=== PATIENT | female | born 1955 | race Caucasian/White ===

== ENCOUNTER 2017-08-18 14:55 | Emergency (ER) | payer MEDICAID ==
[2017-08-18] MEDS ORDERED: Iopamidol 755 MG/ML 150 ML Bottle IV ONE (16:48)
--- NOTE | 2017-08-18 17:31 | EDM.PDOC ---
ED HPI GENERAL MEDICAL PROBLEM - General Chief Complaint: General Stated Complaint: swollen neck Time Seen by Provider: 08/18/17 15:00 Source of Information: Reports: Patient History Limitations: Reports: No Limitations - History of Present Illness INITIAL COMMENTS - FREE TEXT/NARRATIVE: Princess is visiting the [place] area and taking care of 89 yr old mom who reports appearance of painless swelling involving the L neck over the past week. She discussed issues with Oncologist in [place], [place] who advised an ED visit for assessment. She was treated for Breast Ca about 18 mos ago in [place]. She has residual swelling and deformity of the L breast. - Related Data Allergies Allergy/AdvReac Type Severity Reaction Status Date / Time No Known Allergies Allergy Verified 08/18/17 15:25 Home Meds: Home Meds Cetirizine [ZyrTEC] 10 mg PO DAILY 08/18/17 [History] Tamoxifen [Nolvadex] 20 mg PO DAILY 08/18/17 [History] Past Medical History Endocrine/Metabolic History: Reports: Obesity/BMI 30+ Oncologic (Cancer) History: Reports: Breast - Past Surgical History Oncologic Surgical History: Reports: Lumpectomy, Other (See Below) Other Oncologic Surgeries/Procedures: lymphectomy Social & Family History - Family History Family Medical History: Noncontributory - Tobacco Use Smoking Status *Q: Never Smoker - Caffeine Use Caffeine Use: Reports: Coffee - Recreational Drug Use Recreational Drug Use: No ED ROS GENERAL - Review of Systems Review Of Systems: ROS reveals no pertinent complaints other than HPI. ED EXAM, GENERAL - Physical Exam Exam: See Below Exam Limited By: No Limitations General Appearance: Alert, WD/WN, No Apparent Distress Eye Exam: Bilateral Eye: EOMI, Normal Inspection, PERRL Ears: Normal External Exam, Normal TMs Nose: Normal Inspection Throat/Mouth: Normal Inspection, Normal Lips, Normal Teeth, Normal Gums, Normal Oropharynx, Normal Voice, No Airway Compromise Head: Atraumatic, Normocephalic Neck: Supple, Non-Tender, Full Range of Motion, Lymphadenopathy (L) (3 cm firm mass) Respiratory/Chest: Lungs Clear, Normal Breath Sounds, Chest Non-Tender, Other ( L breast: 10 cm firm mass with deformed from prior surgery; R breast: no dx abnormality) GI/Abdominal: Normal Bowel Sounds, No Organomegaly, No Distention (Female) Exam: Deferred Rectal (Female) Exam: Deferred Back Exam: Normal Inspection Extremities: Normal Inspection Neurological: Alert, Oriented, CN II-XII Intact, Normal Cognition, Normal Gait, No Motor/Sensory Deficits Psychiatric: Normal Affect, Normal Mood Skin Exam: Warm, Dry, Intact Lymphatic: Adenopathy (L neck mass) Course - Vital Signs Text/Narrative:: CT scan of the neck confirms a 3 cm mass, likely consistent with metastatic disease. There is also a 10 cm mass in the L breast suspicious for metastatic disease. Results were conveyed to Mrs. Phan, who will follow up with Oncology in [place] tomorrow. - Orders/Labs/Meds Orders: Active Orders 24 hr Category Date Time Status Chest w Cont [CT] Stat Exams 08/18/17 15:37 Taken Soft Tissue Neck w Cont [CT] Stat Exams 08/18/17 15:37 Taken Labs: Laboratory Tests 08/18/17 Range/Units 15:46 Creatinine 0.7 (0.55-1.02) mg/dL Est Cr Clr Drug Dosing 71.03 mL/min Estimated GFR (MDRD) > 60 (>60) Meds: Medications Discontinued Medications Generic Name Dose Route Start Last Admin Trade Name Freq PRN Reason Stop Dose Admin Iopamidol 150 ml 08/18/17 16:48 Isovue-370 (76%) IV 08/18/17 16:49 ONETIME ONE Departure - Departure Time of Disposition: 18:27 Disposition: Home, Self-Care 01 Condition: Fair Clinical Impression: Cervical adenopathy Breast cancer Qualifiers: Breast location: unspecified site of breast Estrogen receptor status: unspecified Patient sex: female Laterality: left Qualified Code(s): C50.912 - Malignant neoplasm of unspecified site of left female breast - Discharge Information Referrals: PCP,None [Primary Care Provider] - Forms: ED Department Discharge - Problem List & Annotations (1) Cervical adenopathy SNOMED Code(s): 598726287 Code(s): R59.0 - LOCALIZED ENLARGED LYMPH NODES Status: Acute Current Visit: Yes Annotation/Comment:: Follow up with Oncology. (2) Breast cancer SNOMED Code(s): 466802546 Code(s): C50.919 - MALIGNANT NEOPLASM OF UNSP SITE OF UNSPECIFIED FEMALE BREAST Status: Acute Current Visit: Yes Annotation/Comment:: Follow up with Oncology. Qualifiers: Breast location: unspecified site of breast Estrogen receptor status: unspecified Patient sex: female Laterality: left Qualified Code(s): C50.912 - Malignant neoplasm of unspecified site of left female breast - Problem List Review Problem List Initiated/Reviewed/Updated: Yes - My Orders Last 24 Hours: My Active Orders 08/18/17 15:37 Chest w Cont [CT] Stat Soft Tissue Neck w Cont [CT] Stat - Assessment/Plan Last 24 Hours: My Active Orders 08/18/17 15:37 Chest w Cont [CT] Stat Soft Tissue Neck w Cont [CT] Stat Plan: Follow up with Oncology tomorrow.
--- NOTE | 2017-08-19 10:35 | CT ---
INDICATION: Lump on neck, axillary area lymph nodes. Lumpectomy breast with [address] NECK WITH CONTRAST: Spiral 1.25-mm images were obtained axially through the neck with sagittal and coronal reconstructions, with 125 mL Isovue-370 at 2 mL per second (50 mL for neck, 75 mL for chest). Examination was obtained 2016. No comparisons are noted at this time. Total Exam DLP = 352.95 mGy-cm. Posterior cervical lymphadenopathy is relatively minimal on the right, slightly more prominent on the left, with one large mass noted below the sternocleidomastoid muscle, axial images #34 through #44, coronal images #85 through #103 on the left. This may represent a large metastatic deposit in a lymph node. Carotid and submandibular glands, although slightly asymmetrical, were unremarkable otherwise, and no other significant appearing masses were seen. IMPRESSION: Large mass on the left posteriorly, medial to the sternocleidomastoid muscle, slightly irregular borders, but fairly well defined at the level of the angle of the mandible. This most likely represents a metastatic deposit. Other lymphadenopathy is noted slightly more prominent on the left than on the right. However, a significant degree of lymphadenopathy is also present on the right. Report was called to Dr. Friedman at 1808 hours, 08/18/2017. [facility]
--- NOTE | 2017-08-19 10:38 | CT ---
INDICATION: Lump on neck, axillary area lymph nodes. Lumpectomy breast with [address] CHEST WITH CONTRAST: Spiral 1.25-mm images were obtained axially through the neck with sagittal and coronal reconstructions, with 125 mL Isovue-370 at 2 mL per second (50 mL for neck, 75 mL for chest). Examination was obtained 08/18. Total Exam DLP = 424.53 mGy-cm. There appear to be some emphysematous changes without a definite nodular abnormality to suggest metastatic disease. It is difficult to entirely exclude some very minimal patchy bronchopneumonia with some areas of slightly heavy markings in the left upper lobe and at the right lower lobe near the lung base. These areas may simply be on the basis of atelectasis and/or fibrosis. Upper abdomen visualized was unremarkable. There is an appearance of a huge mass in the left breast. It measures approximately 10.3 cm in maximum diameter. Thickening of the overlying skin is noted on the left to a marked degree, suggesting metastatic disease and/or edema. The mass-like density could represent a large hematoma - correlate clinically, as its Hounsfield unit density is relatively low, with densities ranging from 18 to 29. No significant axillary lymphadenopathy is noted, although there is some fat stranding extending into that area which likely is a post-surgical finding. Correlate clinically. The heart did not appear enlarged. No significant mediastinal lymphadenopathy was suggested. There appears to be a previous CT in [place], which will be sent for. IMPRESSION: Large density in the left breast may represent a hematoma - correlate clinically. Fat stranding is noted which likely represents post- surgical change in that area. Marked thickening of the skin may represent metastatic disease or edema, but should be correlated clinically also. No gross evidence of distant metastatic disease is seen. MTDD
== END 2017-08-18 18:36 | disposition home or self-care (01) ==
LOC: FB.ED 14:55
DX: C50.912 Malignant neoplasm of unspecified site of left female breast (principal); Z79.899 Other long term (current) drug therapy
CPT/HCPCS: 36415; 70491; 71260; 82565; 99283; Q9967